=== PATIENT | female | born 1990 | race Asian ===

== ENCOUNTER 2023-08-07 20:45 | Emergency (ER) | payer BC ==
[~2023-08-07] VITALS: Ht 167.6 cm; Wt 90.7 kg
[2023-08-07 20:54] VITALS: BP_SYST 154; PULSE 92; RESP 20; TEMP 98.1; O2SAT 95
[2023-08-07] MEDS ORDERED: OXYMETAZOLINE HCL 0.05% NASAL SPRAY NS ONE (22:30)
[2023-08-08 00:21] VITALS: BP_SYST 164; PULSE 84; RESP 18; TEMP 98; O2SAT 98
== END 2023-08-08 00:21 | disposition home or self-care (01) ==
LOC: SED 20:45
DX: R04.0 Epistaxis (principal); E11.9 Type 2 diabetes mellitus without complications; I10 Essential (primary) hypertension; Z79.899 Other long term (current) drug therapy
CPT/HCPCS: 99282